=== PATIENT | female | born 1970 | race African-American/Black ===

== ENCOUNTER 2017-11-01 08:53 | Day surgery (SDC) | payer OTHER, SELFPAY ==
[2017-11-01] MEDS ORDERED: Mexiletine HCl 150 MG CAP PO SCH (09:30)
[2017-11-01 09:40] VITALS: BMI 31.6
[2017-11-01 12:17] VITALS: BP 118/58; TEMP 98
== END 2017-11-01 15:42 | disposition home or self-care (01) ==
LOC: SDC/OP 08:53 → UNDOADMOB 08:53 → 2SW 08:53 → EDSTATUS 14:28 → UNDODISOB 15:42 → SDC/OP 15:42
PROVIDERS: ATTEND Psychiatry & Neurology Neurology
DX: M79.2 Neuralgia and neuritis, unspecified (principal); I10 Essential (primary) hypertension; E78.5 Hyperlipidemia, unspecified; G47.33 Obstructive sleep apnea (adult) (pediatric); G47.00 Insomnia, unspecified; E66.9 Obesity, unspecified; Z68.31 Body mass index [BMI] 31.0-31.9, adult; Z79.84 Long term (current) use of oral hypoglycemic drugs; Z79.899 Other long term (current) drug therapy; Z88.1 Allergy status to other antibiotic agents

== ENCOUNTER 2017-11-11 18:39 | Observation (INO) | payer SELFPAY ==
[2017-11-11 19:08] LABS: #Lymphocytes 1.3 thou/uL (1.20-3.40); #Monocytes 0.6 thou/uL (0.11-0.59); #Neutrophils 8.5 thou/uL (1.40-6.50); %Basophils 0.5 % (0.0-1.0); %Eosinophils 0.5 % (0.0-10.0); %Monocytes 5.5 % (0.0-10.0); %Neutrophils 81.7 % (42.0-75.0); Hemoglobin 12.5 g/dL (12.0-16.0); Mean Corpuscular HGB CONC 32.7 g/dL (32.0-36.0); Mean Corpuscular Hemoglobin 28.3 pg (27.0-31.0); Mean Corpuscular Volume 86.5 fl (81.0-99.0); Mean Platelet Volume 7.3 fL (7.4-10.4); Platelet Count 268 thou/uL (130-400); RBC Distribution Width 12.2 % (11.5-14.5); White Blood Cell (WBC) Count 10.4 thou/uL (4.8-10.8)
[2017-11-11 19:33] LABS: ALT (SGPT) 32 U/L (8-55); AST (SGOT) 18 U/L (5-34); Albumin 4.1 g/dL (3.5-5.0); Alkaline Phosphatase 66 U/L (40-150); Anion Gap 11 mmol/L (10-20); BUN (Urea Nitrogen) 15 mg/dL (7.0-18.7); Bilirubin, Total 0.3 mg/dL (0.2-1.2); CK (CPK) 61 U/L (29-168); CKMB 0.5 ng/mL (0-6.6); Calc. Creatinine Clearance 0 mL/min (70-130); Calcium 9.2 mg/dL (7.8-10.44); Carbon Dioxide 26 mmol/L (22-29); Chloride 106 mmol/L (98-107); Estimated GFR-MDRD 89; Globulin 3.1 g/dL (2.4-3.5); Glucose 191 mg/dL (70-105); Potassium 4.4 mmol/L (3.5-5.1); Protein, Total 7.2 g/dL (6.0-8.3); Sodium 139 mmol/L (136-145); Troponin I Less than 0.010 ng/mL (< 0.028)
--- NOTE | 2017-11-11 20:55 | RAD ---
CHEST ONE VIEW: HISTORY: Cough (R05). COMPARISON: None available. FINDINGS: A dorsal column stimulator is present. The lungs are clear. No pneumothorax or effusion. Cervical hardware is present. IMPRESSION: No acute intrathoracic abnormality. POS: [facility]
[2017-11-11] MEDS ORDERED: Ketorolac Tromethamine 30 MG/ML VIAL ONE (21:05)
[2017-11-11 23:21] LABS: Troponin I Less than 0.010 ng/mL (< 0.028)
[2017-11-12 02:11] LABS: Troponin I Less than 0.010 ng/mL (< 0.028)
[2017-11-12] MEDS ORDERED: Zolpidem Tartrate 5 MG TAB PO PRN (09:23)
[2017-11-12] MEDS ORDERED: Ondansetron HCl/PF 4 MG/2 ML Vial IVP PRN (09:23)
[2017-11-12] MEDS ORDERED: Dextrose 5% in Water 1,000 ML IV PRN (09:42)
[2017-11-12] MEDS ORDERED: HumaLOG 300 UNITS/3 ML VIAL SC PRN (09:42)
[2017-11-12] MEDS ORDERED: Dextrose 50% Abboject 50 ML SYRINGE SLOW IVP PRN (09:42)
--- NOTE | 2017-11-12 09:46 | PDOC.EVN ---
Event Note - Event Note Event Note: H&P DICTATED [id number]
--- NOTE | 2017-11-12 09:49 | PDOC.EVN ---
Event Note - Event Note Event Note: DC SUMMARY: [id number]
[2017-11-12] MEDS ORDERED: SUMAtriptan Succinate 50 MG TAB PO PRN (09:57)
--- NOTE | 2017-11-12 11:19 | HP ---
DATE OF ADMISSION: 11/12/2017 CHIEF COMPLAINT: Chest pain. HISTORY OF PRESENT ILLNESS: This is a 47-year-old female who says that approximately 2 weeks ago, sangita paredes was started on 2 medications from her solutions architect consultant and has been noted to have some chest pain which is band and pressure-like in nature, radiating across her chest as well as to her right arm to the r ight elbow. The patient states that the pain is 10/10 when it does occur, currently is a 5/10, state s that pain occurs with exertion, improves with rest. Denies any other associated symptoms or compla ints. States that the pain prior to 2 weeks ago had never occurred. The patient currently denies an y other nausea, vomiting, diarrhea, constipation, fevers, chills, shortness of breath. No alleviatin g or aggravating factors noted. No other associated symptoms noted. The patient was seen and examin ed. Family at bedside in the ER. All questions answered. ALLERGIES: CEPHALOSPORINS. PAST MEDICAL HISTORY: Hypertension, obesity, hyperlipidemia, cervical disk disease as well as obstru ctive sleep apnea and diabetes mellitus type 2. FAMILY HISTORY: Positive for diabetes mellitus type 2, hypertension, stroke, and cardiac disease in her mom and dad. SOCIAL HISTORY: Denies any drinking, smoking or illicit drug use. HOME MEDICATIONS: Please see MAR. REVIEW OF SYSTEMS: All systems reviewed. Pertinent positives in the HPI, otherwise negative. PHYSICAL EXAMINATION: VITAL SIGNS: Blood pressure is 130/80, respiratory rate of 18, pulse of 88, temperature of 98. GENERAL: The patient in no acute distress, lying in bed comfortably. HEENT: Pupils equal, round, react to light and accommodation. Extraocular muscles intact. Oral cav ity moist and pink. NECK: Nontender thyroid noted. CARDIOVASCULAR: Regular rate and rhythm. S1 and S2. No murmurs, rubs or gallops appreciated. PULMONARY: Clear to auscultation bilaterally, aerating well. No respiratory distress. No rales, rh onchi, wheezing appreciated. ABDOMEN: Positive bowel sounds, soft, nontender, no rebound or guarding noted. EXTREMITIES: 2+ peripheral pulses bilaterally in all 4 extremities. No edema noted in all 4 extremi ties. NEUROLOGIC: Cranial nerves II-XII intact. No loss of motor or sensory function. LABORATORY DATA: CBC within normal limits. D-dimer level less than 0.27. Basic metabolic panel wit hin normal limits. Troponins negative x3 over a period of 18 hours. ASSESSMENT AND PLAN: 1. Chest pain. 2. Hyperlipidemia. 3. Hypertension. 4. Diabetes mellitus type 2. 5. Obesity. 6. Obstructive sleep apnea. PLAN: Admit to telemetry observation. Troponins are negative x3. We will obtain a cardiac stress t est, chemical. Consult Dr. Conde. Discharge planning for today if stress test negative and if okay w ith Dr. Conde. CODE STATUS: The patient wishes to remain a full code. GI and DVT prophylaxis with SCDs and Pepcid. Case and plan discussed with the patient and family at length. They understand and agree with this p radha.
[2017-11-12] MEDS ORDERED: Gabapentin 400 MG CAP PO SCH (13:00)
--- NOTE | 2017-11-12 13:21 | NM ---
NUCLEAR MEDICINE CARDIAC STRESS WITH EJECTION FRACTION AND WALL MOTION: Date: 11/12/17 HISTORY: Chest pain. COMPARISON: 08/14/17. TECHNIQUE: The patient was administered 28 mCi of technetium-99m sestamibi. Only stress imaging was performed. FINDINGS: Homogeneous distribution of the radiotracer on the attenuation corrected images. End-diastolic volume is 58 mL. End-systolic volume is 15 mL. CARDIAC GATING: Normal motion and thickening. Ejection fraction is 74%. IMPRESSION: 1. Ejection fraction is 74%. 2. Homogeneous distribution of radiotracer in left ventricle. POS: [facility]
[2017-11-12] MEDS ORDERED: ADENOSINE 60 MG/20 ML VIAL ONE (13:25)
--- NOTE | 2017-11-12 14:24 | DIS ---
DATE OF ADMISSION: 11/12/2017 DATE OF DISCHARGE: 11/12/2017 ADMITTING DIAGNOSES: 1. Chest pain. 2. Hyperlipidemia. 3. Hypertension, 4. Obesity. 5. Obstructive sleep apnea. 6. Diabetes mellitus type 2. DISCHARGE DIAGNOSES: 1. Chest pain, noncardiac in nature. 2. Hypertension. 3. Hyperlipidemia. 4. Obesity. 5. Diabetes mellitus type 2. HOSPITAL COURSE: This is a 47-year-old female who stated that she was having band-like chest pain ac ross her with chest for the past 2 weeks, 10/10 at worst 5/10 at best, radiating to her right shoulde r not going past her right elbow. The patient apparently had a recent medication change from her car diologist approximately 2-4 weeks ago and noted that the pain started approximately 2 weeks ago. Shannon or to that, she has never had any chest pain. The patient was admitted to Internal Medicine and foll owed by Cardiology. Also had a stress test done. The patient had cardiac enzymes done negative x3. CBC was normal. BMP was normal. D-dimer was negative. The patient had a chest x-ray performed dur ing time of admission as well and was found to have no acute intrathoracic abnormality noted. The pa tient upon time of discharge denied any nausea, vomiting, diarrhea, constipation, chest pains or shor tness of breath, was stable and back to her baseline. The patient wants to be discharged home and fo llow up with her gse mechanic and PCP within 1 week for further management and care. DISPOSITION: Home. MEDICATIONS: Resume home medications. ACTIVITY: As tolerated with assistance as appropriate. DIET: Low fat, low calorie, high fiber diet. CONDITION: Stable. PROGNOSIS: Good. The case and plan discussed with the patient and family at length. They understand and agree with th is plan.
[2017-11-12] MEDS ORDERED: busPIRone HCl 10 MG TAB PO SCH (15:00)
[2017-11-12] MEDS ORDERED: Famotidine 20 MG TAB PO SCH (21:00)
[2017-11-12] MEDS ORDERED: Simvastatin 5 MG TAB PO SCH (21:00)
[2017-11-12] MEDS ORDERED: DULoxetine 60 MG CAP PO SCH (21:00)
[2017-11-12] MEDS ORDERED: Carvedilol 3.125 MG TAB PO SCH (21:00)
[2017-11-12] MEDS ORDERED: Amlodipine 10 MG TAB PO SCH (21:00)
[2017-11-13] MEDS ORDERED: predniSONE 5 MG TAB PO SCH (08:00)
[2017-11-13] MEDS ORDERED: Lisinopril 10 MG TAB PO SCH (09:00)
== END 2017-11-12 13:38 | disposition home or self-care (01) ==
LOC: ERS 18:39 → ERHOLD 22:22
PROVIDERS: ADMIT Internal Medicine; ATTEND Internal Medicine
DX: R07.89 Other chest pain (principal); I10 Essential (primary) hypertension; E78.5 Hyperlipidemia, unspecified; E66.9 Obesity, unspecified; G47.33 Obstructive sleep apnea (adult) (pediatric); E11.9 Type 2 diabetes mellitus without complications; Z88.1 Allergy status to other antibiotic agents; Z79.899 Other long term (current) drug therapy
CPT/HCPCS: 36415; 71045; 78452; 80053; 82553; 84484; 85025; 85379; 93005; 93017; 96374; A9500; G0378; J0153; J1885

== ENCOUNTER 2018-07-10 19:42 | Emergency (ER) | payer MEDICARE, OTHER ==
[2018-07-10 20:39] LABS: #Basophils 0.1 thou/uL (0.0-0.2); #Lymphocytes 1.4 thou/uL (1.20-3.40); #Monocytes 0.4 thou/uL (0.11-0.59); #Neutrophils 6.6 thou/uL (1.40-6.50); %Basophils 0.9 % (0.0-1.0); %Eosinophils 0.4 % (0.0-10.0); %Lymphocytes 16.6 % (21.0-51.0); %Monocytes 4.7 % (0.0-10.0); %Neutrophils 77.3 % (42.0-75.0); Hemoglobin 13.1 g/dL (12.0-16.0); Mean Corpuscular HGB CONC 32.8 g/dL (32.0-36.0); Mean Corpuscular Hemoglobin 28.1 pg (27.0-31.0); Mean Corpuscular Volume 85.5 fL (78.0-98.0); Mean Platelet Volume 8.2 fL (7.4-10.4); Platelet Count 262 thou/uL (130-400); RBC Distribution Width 11.9 % (11.5-14.5); Red Blood Cell (RBC) Count 4.66 mill/uL (4.20-5.40); White Blood Cell (WBC) Count 8.5 thou/uL (4.8-10.8)
--- NOTE | 2018-07-10 20:44 | RAD ---
PORTABLE CHEST: 07/10/18 PROVIDED CLINICAL HISTORY: Chest pain. FINDINGS: Comparison 02/08/18. Cardiac and mediastinal silhouette is within normal limits. No focal consolidation, pleural fluid or pneumothorax apparent. IMPRESSION: No evidence for an acute cardiopulmonary process. POS: [facility]
[2018-07-10 20:59] LABS: ALT (SGPT) 33 U/L (8-55); AST (SGOT) 17 U/L (5-34); Albumin 4.6 g/dL (3.5-5.0); Alkaline Phosphatase 78 U/L (40-150); Anion Gap 17 mmol/L (10-20); BUN (Urea Nitrogen) 17 mg/dL (7.0-18.7); Bilirubin, Total 0.2 mg/dL (0.2-1.2); Calc. Creatinine Clearance 0 mL/min (70-130); Calcium 10.2 mg/dL (7.8-10.44); Carbon Dioxide 23 mmol/L (22-29); Chloride 103 mmol/L (98-107); Estimated GFR-MDRD 69; Globulin 3.5 g/dL (2.4-3.5); Glucose 250 mg/dL (70-105); Lipase 32 U/L (8-78); Potassium 4.1 mmol/L (3.5-5.1); Protein, Total 8.1 g/dL (6.0-8.3); Sodium 139 mmol/L (136-145)
[2018-07-10 21:17] LABS: BHCG - Serum Negative (NEGATIVE); Pregs Control Background? CLEAR/WHITE (CLR/WHITE); Pregs Control Bar Appear? YES (CONTROL BAR)
[2018-07-10] MEDS ORDERED: Morphine 4 MG/ML VIAL ONE (22:58)
[2018-07-10 23:51] LABS: Troponin I Less than 0.010 ng/mL (< 0.028)
== END 2018-07-11 00:13 | disposition home or self-care (01) ==
LOC: ERS 19:42
DX: R07.9 Chest pain, unspecified (principal); I10 Essential (primary) hypertension; E78.00 Pure hypercholesterolemia, unspecified; E11.9 Type 2 diabetes mellitus without complications; Z79.899 Other long term (current) drug therapy; Z79.84 Long term (current) use of oral hypoglycemic drugs
CPT/HCPCS: 36415; 71045; 80053; 83690; 84443; 84484; 84703; 85025; 85379; 93005; 96361; 96374; J2270

== ENCOUNTER 2018-09-01 14:12 | Emergency (ER) | payer MEDICARE | END 2018-09-01 15:46 | disposition home or self-care (01) | LOC: ERS 14:12 | DX: L76.22 Postprocedural hemorrhage of skin and subcutaneous tissue following other procedure (principal); E78.5 Hyperlipidemia, unspecified; E11.9 Type 2 diabetes mellitus without complications; I10 Essential (primary) hypertension; Z79.84 Long term (current) use of oral hypoglycemic drugs; Z79.899 Other long term (current) drug therapy; Z79.891 Long term (current) use of opiate analgesic | CPT/HCPCS: 99283 ==

== ENCOUNTER 2018-12-12 14:12 | Outpatient (CLI) | payer MEDICARE ==
--- NOTE | 2018-12-12 15:04 | CT ---
CT OF THE LUMBAR SPINE: DATE: 12/12/2018. COMPARISON: 03/10/2013. HISTORY: Lumbar radiculopathy, pain down both legs. TECHNIQUE: Axial CT imaging at 3 mm intervals through the lumbar spine without contrast. Coronal and sagittal re formatted imaging obtained. FINDINGS: Evaluation for central canal and/or neural foraminal stenosis is limited on routine CT examination. Incompletely imaged dorsal column stimulating device present. Imaged retroperitoneal structures appea r grossly unremarkable. Bilateral pedicle screws are present at the L5 and S1 levels with vertically oriented interlocking rods. There is an intervertebral disc device at the L5-S1 level. No acute osseous abnormality. No anterolisthesis or retrolisthesis. T12-L1: No osseous cause of significant central canal or neural foraminal stenosis. L1-2: No osseous cause of significant central canal or neural foraminal stenosis. L2-3: No osseous cause of significant central canal or neural foraminal stenosis. L3-4: No osseous cause of significant central canal or neural foraminal stenosis. L4-5: No osseous cause of significant central canal or neural foraminal stenosis. L5-S1: Hemilaminectomy and facetectomy noted on the left. No osseous cause of significant central can al or neural foraminal stenosis. There is a pars defect on the right at L5 which appears to have developed osseous bridging when compared to the prior CT exam. No worrisome lytic or blastic bone les ion. IMPRESSION: Postoperative changes within the lumbar spine as detailed above. There is no osseous cause of signifi cant central canal or neural foraminal stenosis. If further imaging is clinically warranted, CT myelogram may be beneficial. Transcribed Date/Time: 12/12/2018 3:42 PM
--- NOTE | 2018-12-12 15:13 | CT ---
CERVICAL SPINE CT WITHOUT CONTRAST: DATE: 12/12/2018. COMPARISON: 08/20/2016. HISTORY: Multiple prior cervical spine surgeries, neck pain. TECHNIQUE: Axial CT imaging at 2 mm intervals through cervical spine without contrast. Coronal and sagittal refo rmatted imaging obtained. FINDINGS: Evaluation for central canal and/or neural foraminal stenosis is limited on CT. In this case evaluati on is quite limited from the C3-C6 levels secondary to extensive streak artifact associated with anterior and posterior metallic fusion hardware. Postoperative hardware includes anterior discectomy and fusion hardware at the C3-4/C4-5 level. There is an additional anterior discectomy and fusion hardware component at C6-7. The screws inserted anteriorly at the C7 level appear fractured bilaterally and the head of both of these screws is not f ully flush with the associated plate. The anterior fusion hardware at C3-4 and C4-5 appears stable compared to the prior exam. Posterior fusion hardware including bilateral pedicle screws at C3, C4, C 5, and C6 are noted with vertically oriented interlocking rods. Of note, there is a lucency suggesting loosening of the bilateral pedicle screws at C6, stable when compared to the prior examina tion. The posterior fusion hardware is stable when compared to the prior CT examination. The visualized lung apices are grossly unremarkable. Craniocervical junction, atlantoaxial interspace, and cervicothoracic junction demonstrate no acute f indings. There is no anterolisthesis or retrolisthesis evident within the cervical spine. C2-3: No osseous cause of significant central canal or neural foraminal stenosis. C3-4: Posterior osteophyte in left paracentral region, stable. No osseous cause of significant neural foraminal stenosis. Bilateral laminectomy. C4-5: No osseous cause of significant central canal or neural foraminal stenosis. Bilateral laminect gary change noted. C5-6: No osseous cause of significant central canal or neural foraminal stenosis. Bilateral laminecto my change noted. C6-7: No osseous cause of significant central canal or neural foraminal stenosis. There is posterior osteophyte in the left foraminal/left paracentral region. C7-T1: No osseous cause of significant central canal or neural foraminal stenosis. Occipital condyles, dens, and C1-2 articulation appear grossly unremarkable. No acute fracture or eugene dence of dislocation is seen within the cervical spine. The anteriorly placed screw on the right at C5 demonstrates stable fracture. IMPRESSION: Postoperative and degenerative change within the cervical spine as detailed above. Anterior fusion sc rews at C7 demonstrate fracture as does the right screw placed anteriorly at C5. The pedicle screws present at C6 demonstrate stable loosening bilaterally. If there is clinical concern for underlying c entral canal and/or neural foraminal stenosis, CT myelogram may be beneficial. Transcribed Date/Time: 12/12/2018 3:51 PM
== END 2018-12-12 14:13 | disposition home or self-care (01) ==
LOC: BICCT 14:12
PROVIDERS: ATTEND Pain Medicine Pain Medicine
DX: M54.2 Cervicalgia (principal); M54.17 Radiculopathy, lumbosacral region; M47.812 Spondylosis without myelopathy or radiculopathy, cervical region; Z98.1 Arthrodesis status; Z98.890 Other specified postprocedural states
CPT/HCPCS: 72125; 72131

== ENCOUNTER 2018-12-16 16:00 | Observation (INO) | payer MEDICARE ==
--- NOTE | 2018-12-16 16:59 | RAD ---
PORTABLE CHEST ONE VIEW: 12/16/18 at 4:06 p.m. HISTORY: Chest pain. FINDINGS: Comparison made with the exam of 07/10/18. The heat size is normal. The lungs are expanded without focal areas of consolidation, pneumothoraces, or pleural effusions. Intraspinal leads and postop changes and metallic hardware in the lower cervi lamar spine is again noted. IMPRESSION: No radiographic evidence of acute cardiopulmonary process. POS: [facility]
[2018-12-16 17:07] LABS: #Basophils 0.1 thou/uL (0.0-0.2); #Eosinphils 0.1 thou/uL (0.0-0.7); #Lymphocytes 2.4 thou/uL (1.20-3.40); #Monocytes 0.6 thou/uL (0.11-0.59); #Neutrophils 4.3 thou/uL (1.40-6.50); %Eosinophils 1.6 % (0.0-10.0); %Lymphocytes 31.9 % (21.0-51.0); %Monocytes 8.5 % (0.0-10.0); Hemoglobin 12.1 g/dL (12.0-16.0); Mean Corpuscular HGB CONC 32.3 g/dL (32.0-36.0); Mean Corpuscular Hemoglobin 27.9 pg (27.0-31.0); Mean Corpuscular Volume 86.3 fL (78.0-98.0); Mean Platelet Volume 8.2 fL (7.4-10.4); Platelet Count 245 thou/uL (130-400); RBC Distribution Width 12.1 % (11.5-14.5); Red Blood Cell (RBC) Count 4.36 mill/uL (4.20-5.40); White Blood Cell (WBC) Count 7.5 thou/uL (4.8-10.8)
[2018-12-16] MEDS ORDERED: Aspirin Chewable 81 MG TAB ONE (17:39)
[2018-12-16 17:45] LABS: ALT (SGPT) 27 U/L (8-55); AST (SGOT) 12 U/L (5-34); Albumin 4.1 g/dL (3.5-5.0); Alkaline Phosphatase 74 U/L (40-150); Anion Gap 13 mmol/L (10-20); BUN (Urea Nitrogen) 9 mg/dL (7.0-18.7); Bilirubin, Total 0.3 mg/dL (0.2-1.2); Calc. Creatinine Clearance 0 mL/min (70-130); Calcium 9.6 mg/dL (7.8-10.44); Carbon Dioxide 25 mmol/L (22-29); Chloride 104 mmol/L (98-107); Estimated GFR-MDRD 82; Globulin 2.9 g/dL (2.4-3.5); Glucose 323 mg/dL (70-105); Potassium 3.4 mmol/L (3.5-5.1); Sodium 139 mmol/L (136-145)
[2018-12-16 20:38] LABS: Troponin I Less than 0.010 ng/mL (< 0.028)
[2018-12-16] MEDS ORDERED: Acetaminophen 650 MG Suppository PR PRN (21:01)
[2018-12-16] MEDS ORDERED: Acetaminophen 325 MG TAB PO PRN (21:01)
[2018-12-16] MEDS ORDERED: Ondansetron ODT 4 MG TAB PO PRN (21:01)
[2018-12-16] MEDS ORDERED: Nitroglycerin 0.4 MG TAB (25 Tab Bottle) PO PRN (21:01)
[2018-12-16] MEDS ORDERED: Ondansetron PF 4 MG/2 ML Vial IVP PRN (21:01)
[2018-12-16] MEDS ORDERED: Dextrose 50% Abboject 50 ML SYRINGE SLOW IVP PRN (21:04)
[2018-12-16] MEDS ORDERED: HumaLOG 300 UNITS/3 ML VIAL SC PRN (21:04)
[2018-12-16] MEDS ORDERED: Dextrose 5% in Water 1,000 ML IV PRN (21:04)
[2018-12-16 21:41] VITALS: BMI 31.6
[2018-12-16] MEDS ORDERED: Gabapentin 400 MG CAP PO SCH (22:30)
[2018-12-16] MEDS ORDERED: Simvastatin 5 MG TAB PO SCH (22:30)
[2018-12-16] MEDS ORDERED: Nortriptyline HCl 25 MG CAP PO SCH (22:30)
[2018-12-16] MEDS ORDERED: Zolpidem Tartrate 5 MG TAB PO SCH (22:30)
[2018-12-16] MEDS ORDERED: busPIRone HCl 10 MG TAB PO SCH (22:30)
[2018-12-16] MEDS ORDERED: DICLOFENAC SODIUM 25 MG PO SCH (22:45)
[2018-12-16 23:13] LABS: Troponin I Less than 0.010 ng/mL (< 0.028)
--- NOTE | 2018-12-17 01:13 | HP ---
PRIMARY CARE DOCTOR: Dr. David Santiago. CODE STATUS: Full code. TIME OF EVALUATION: 8:20 pm. CHIEF COMPLAINT: Chest pain. HISTORY OF PRESENT ILLNESS: This is a 48-year-old female patient with past medical history of diabetes, hyperlipidemia, hypertension, came to the hospital after having chest pain that was in the left lower ribcage area. The symptoms were severe when present. Symptoms have been on and off with no clear triggers, no alleviating factors. The patient reported that may be associated to being off mexiletine for a week. She reported that her primary doctor has not filled in the medications. The patient also follows with Dr. Conde and she has stated Dr. Conde going to place the patient in observation, trend troponins. Consult Dr. Conde in case the patient is needing cardiac cath recommendation. REVIEW OF SYSTEMS: CONSTITUTIONAL: No fever, chills, or generalized weakness. RESPIRATORY: No cough, sputum production, or shortness of breath. CARDIOVASCULAR: The patient has chest pain. No palpitation. GASTROINTESTINAL: No nausea, vomiting, diarrhea, or abdominal pain. SYSTEMS DEVELOPMENT MANAGER: No dizziness, headache, or feeling lightheaded. GENITOURINARY: No burning on urination. EXTREMITIES: No leg swelling. All other systems were reviewed and negative except for the findings mentioned above. PAST MEDICAL HISTORY: Diabetes, hyperlipidemia, high cholesterol, hypertension. PAST SURGICAL HISTORY: The patient has surgical history of spinal surgery, lumbar surgery, laminectomy, tonsillectomy, tubal ligation. PSYCHIATRIC HISTORY: No previous psych history. SOCIAL HISTORY: The patient denies alcohol use. No drug use. No smoking history. FAMILY HISTORY: The patient has history of hypertension. Father with a stroke. Mother with cardiac problems, congestive heart failure, and diabetes. KNOWN ALLERGIES: Cefazolin, penicillin and Rocephin. REPORTED MEDICATIONS: 1. Zolpidem. 2. Tizanidine. 3. Duloxetine. 4. Diclofenac. 5. Gabapentin. 6. Tylenol codeine No.4. 7. Pravastatin. 8. Amlodipine. 9. Metformin. 10. Nortriptyline. 11. Hydrocodone acetaminophen. 12. Prednisone. 13. Buspirone. 14. Lisinopril. 15. Glipizide. 16. Carvedilol. 17. Mexiletine. PHYSICAL EXAMINATION: VITAL SIGNS: On presentation, blood pressure 144/85 with heart rate 103, respiratory rate was 18, temperature 99.2. Pain is 9/10. Oxygen saturation 97% on room air. GENERAL: The patient is alert, oriented, not in acute distress. HEENT: Eyes, normal conjunctivae. Moist oral mucosa. Anicteric. No JVD. RESPIRATORY: Bilateral air entry. No rales. No wheezes. Symmetric expansion. CARDIOVASCULAR: Normal rate. Regular rhythm. No murmurs. No gallop. No edema. ABDOMEN: Soft. Normal bowel sounds. MUSCULOSKELETAL: Baseline range of motion and strength. SKIN: Warm, intact. No pallor. No rash. No redness. Capillary refill seems to be intact. NEURO: No evidence of any new focal weakness. Cranial nerves seems to be intact. PSYCH: The patient is in good mood. No anxiety. Optimal judgment. DIAGNOSTIC STUDIES: EKG was reviewed. The patient has normal sinus rhythm with a rate of 96, MT 130, QRS 74, QT corrected 442. Chest x-ray was reviewed. The patient has no radiographic evidence of acute cardiopulmonary process. LABORATORY DATA: Reviewed. The patient has a white count 7.5, hemoglobin 12.1, MCV 86.3, platelet count 245. Chemistry; sodium 139, potassium 3.4, chloride 104, carbon dioxide 25, anion gap 13, BUN 9, creatinine 0.89, GFR 82, glucose 323, calcium 9.6, total bilirubin 0.3. LFTs were negative. Troponin was negative x2. Serum total protein 7.0, albumin 4.1, globulin 2.9, albumin globulin ratio is 1.4. ASSESSMENT AND PLAN: The patient will be placed in the hospital with following medical problems: 1. Chest pain, rule out acute coronary syndrome. The patient had seen Dr. Conde yesterday. Dr. Conde has offered her to have a cardiac cath done since previous studies have been nonconclusive as per patient's report. We will consult Dr. Conde and we will follow recommendations in case the patient needs to go for cardiac cath at this point. 2. Uncontrolled hypertension. The patient has systolic blood pressure 142. Reconcile home medications. Adjust treatment as needed. 3. Uncontrolled diabetes with sugar 323. We will place the patient on a sliding scale for optimal control. 4. Hypokalemia. Potassium 3.4. Replace electrolytes as needed. 5. Hyperlipidemia. Low-cholesterol diet is advised, reconcile home medications. 6. Deep venous thrombosis prophylaxis. Job ID: [id number]
[2018-12-17 05:48] LABS: #Basophils 0.1 thou/uL (0.0-0.2); #Eosinphils 0.1 thou/uL (0.0-0.7); #Lymphocytes 2.7 thou/uL (1.20-3.40); #Monocytes 0.8 thou/uL (0.11-0.59); #Neutrophils 5.7 thou/uL (1.40-6.50); %Basophils 0.8 % (0.0-1.0); %Eosinophils 0.8 % (0.0-10.0); %Lymphocytes 29.1 % (21.0-51.0); %Monocytes 8.8 % (0.0-10.0); %Neutrophils 60.4 % (42.0-75.0); Hemoglobin 11.6 g/dL (12.0-16.0); Mean Corpuscular HGB CONC 32.5 g/dL (32.0-36.0); Mean Corpuscular Volume 86.1 fL (78.0-98.0); Mean Platelet Volume 7.9 fL (7.4-10.4); Platelet Count 231 thou/uL (130-400); Red Blood Cell (RBC) Count 4.14 mill/uL (4.20-5.40); White Blood Cell (WBC) Count 9.4 thou/uL (4.8-10.8)
[2018-12-17 06:12] LABS: Anion Gap 11 mmol/L (10-20); BUN (Urea Nitrogen) 12 mg/dL (7.0-18.7); Calc. Creatinine Clearance 119 mL/min (70-130); Calcium 9.3 mg/dL (7.8-10.44); Carbon Dioxide 28 mmol/L (22-29); Chloride 105 mmol/L (98-107); Estimated GFR-MDRD Greater than 90; Glucose 142 mg/dL (70-105); Potassium 3.7 mmol/L (3.5-5.1); Sodium 140 mmol/L (136-145)
[2018-12-17] MEDS ORDERED: Carvedilol 6.25 MG TAB PO SCH (08:00)
[2018-12-17] MEDS ORDERED: predniSONE 5 MG TAB PO SCH (08:00)
[2018-12-17] MEDS ORDERED: DULoxetine 60 MG CAP PO SCH (09:00)
[2018-12-17] MEDS ORDERED: Lisinopril 10 MG TAB PO SCH (09:00)
[2018-12-17] MEDS ORDERED: Aspirin 325 mg Enteric Coated Tablet PO SCH (09:00)
[2018-12-17] MEDS ORDERED: Enoxaparin Sodium 40 MG/0.4 ML SYRINGE SC SCH (09:00)
[2018-12-17] MEDS ORDERED: Amlodipine 10 MG TAB PO SCH (09:00)
--- NOTE | 2018-12-17 10:53 | CON ---
DATE OF CONSULTATION: 12/17/2018 INDICATION FOR CONSULTATION: A 48-year-old female, who complains of chest pain. This very unfortunate 48-year-old female I have followed for some time now. She has a history of hypertension, hyperlipidemia, diabetes, and multiple problems with pain. She has chronic pain syndrome. She has been seen by Neurology. She was started on mexiletine. She was recently seen in my office and was requesting for the refills. Since I did not prescribe this medication and this was given for a neurologic problem, I did not refill the medication. I would suggest that she follow with her neurologist. She now has presented again to the hospital complaining of more left-sided pain. According to the breast area sometime, she describes it as being a sharp stabbing pain, sometimes a pressure pain, sometimes radiating across the chest. It does not associate with any particular activity. She can get it at rest. She can get with when she is walking or sometimes she can do the same activities and not get the pain. She has had some associated shortness of breath associated with this, but sometimes not. She is somewhat vague and discomfort. The pain usually lasts one or two minutes and then resolves on its own. Her EKG is unremarkable. Cardiac enzymes are unremarkable. She had a stress test within the year, which has also been unremarkable. She had a normal ejection fraction. Given her history and the evaluation, it does not appear to be cardiac in nature at this time. PAST MEDICAL HISTORY: Significant for hyperlipidemia, diabetes, hypertension, and hypercholesterolemia. She has had back surgeries, lumbar surgery, laminectomy, tonsillectomy, and tubal ligation and she has chronic pain syndrome. She has no alcohol or tobacco abuse. No illicit drug use. MEDICATIONS: Include zolpidem, tizanidine, duloxetine, diclofenac, and gabapentin. She has also taken Tylenol with codeine #4, pravastatin, amlodipine, metformin, nortriptyline, hydrocodone/acetaminophen, prednisone, buspirone, lisinopril, glipizide, carvedilol, and mexiletine and I believe this has been recently restarted. ALLERGIES: SHE IS ALLERGIC TO ROCEPHIN, PENICILLIN, AND CEFAZOLIN. REVIEW OF SYSTEMS: Her review of systems is unremarkable except what is noted in the history of present illness. PHYSICAL EXAMINATION: GENERAL: Reveals a middle-aged female, who is in no acute distress. She is alert. She is oriented. VITAL SIGNS: Her blood pressure is 135/75. She is afebrile. Heart rates in the 90s and shows a sinus rhythm, O2 saturation 95%. HEENT: Shows the head to be normocephalic and atraumatic. Carotid pulses are present. There were no bruits. Her chest was clear to auscultation without rales, rhonchi, or wheezing. CARDIOVASCULAR: Exam reveals a regular rate and rhythm. Normal S1 and S2. There is no S3 or S4. There were no significant murmurs, heaves, thrills, bruits, or rubs. ABDOMEN: Exam shows obesity with positive bowel sounds. No organomegaly or masses noted. Femoral pulses are present. EXTREMITIES: No clubbing, cyanosis, or edema. Pedal pulses are present. NEUROLOGIC: The patient at this time appears to be fully intact. I cannot elicit any gross focal motor deficits. SKIN: Warm and dry. LABORATORY DATA: Unremarkable. WBC of 9.4, hemoglobin 11.6, potassium is 3.7, blood sugar is 142, earlier it was 323. Cardiac enzymes, troponin I is less than 0.01. IMPRESSION: 1. Atypical chest pain, which most likely is musculoskeletal and neurologic in nature, does not appear to be cardiac. She has a normal EKG and negative cardiac enzymes. She did have a stress test in the past. We can always repeat the stress test. I do not think that a cardiac catheterization is indicated at this time. I suggest she undergo a repeat stress test prior to any further invasive procedures. Her echocardiogram also shows a normal ejection fraction and no other significant abnormalities were noted. This was performed also within the last year. Her ejection fraction by stress testing was 74% by echocardiogram. Her ejection fraction was 65% to 70% with no other significant abnormalities. 2. History of diabetes, this to be dealt by the primary care service. 3. History of chronic pain. She has been seen by the neurologist. They will continue to follow her as an outpatient. If her stress test shows any abnormality, we are more than happy for her to undergo a cardiac catheterization. For her other medical problems, she will be that she will be followed by the Hospitalist Service. Thank you. Job ID: [id number]
[2018-12-17 12:58] VITALS: BP 148/76; TEMP 98.1
[2018-12-17] MEDS: busPIRone HCl 10 MG TAB PO SCH ×2 (13:15)
[2018-12-17] MEDS: Gabapentin 400 MG CAP PO SCH ×2 (13:16→13:17)
--- NOTE | 2018-12-17 14:02 | NM ---
EXAM: Cardiac SPECT HISTORY: Chest pain, hypertension, diabetes, dyslipidemia. PROTOCOL: Stress only, single isotope TYPE OF STRESS: Pharmacologic stress with adenosine was monitored and interpreted by Last Cardenas nurse practitioner RADIOPHARMACEUTICAL: 30 mCi technetium 99m-sestamibi injected intravenously FINDINGS: Homogeneous tracer distribution is seen in the myocardial segments on the post stress images. Gated SPECT LVEF: 72% Wall motion exam: Normal IMPRESSION: Normal post stress myocardial perfusion scan.
[2018-12-17] MEDS ORDERED: ADENOSINE 60 MG/20 ML VIAL ONE (16:36)
[2018-12-17] MEDS ORDERED: Simvastatin 5 MG TAB PO SCH (21:00)
[2018-12-17] MEDS ORDERED: Nortriptyline HCl 25 MG CAP PO SCH (21:00)
[2018-12-17] MEDS ORDERED: DICLOFENAC SODIUM 25 MG PO SCH (21:00)
[2018-12-17] MEDS ORDERED: Zolpidem Tartrate 5 MG TAB PO SCH (21:00)
--- NOTE | 2018-12-18 10:51 | CON ---
DATE OF CONSULTATION: PRIMARY CARE DOCTOR: Dr. Dvaid Santiago. PRIMARY HEEL GOUGER: Dr. Yanci Conde. REASON FOR CARDIOLOGY CONSULTATION: Chest pain, had been offered cath. HISTORY OF PRESENT ILLNESS: Ms. Alex Bowman is a 48-year-old female with a significant history of diabetes type 2, hyperlipidemia, hypertension, history of TIA, neuropathy, and chronic back pain, which radiated to the right bilateral shoulder. The patient was in Dr. Conde' office on Saturday for questionable mexiletine, which was prescribed by the neurologist, and that she was requesting Dr. Conde to prescribe the medication for neuropathy and which also controlled her chest pain. At this moment, we are waiting for more information from Dr. Conde' office about the medication. Yesterday, she started having worsened sharp pain on the left chest and pressure to the right upper chest, which aggravated with palpation and movement, and she had another episode last night; however, the telemetry record did not show any abnormal EKG or ST-segment change or T-wave inversion. She also complained of the sweating, breakout, and spinning like dizziness during the episode last night and yesterday. She denies any other cardiac complaints during the episode. She has had echocardiogram that was done in January 2018 with EF of 65% to 70%, mild tricuspid regurgitation, trace mitral valve regurgitation, and moderate pulmonic valve regurgitation, and she had a stress test in October 2017 with no reversible ischemia with EF of 74%. She had a carotid Doppler done in January 2018 for rule out TIA, which showed no significant evidence. No significant carotid stenosis. PAST MEDICAL HISTORY: 1. Diabetes type 2. 2. Hyperlipidemia. 3. Hypertension. 4. History of TIA in January 2018. 5. Neuropathy. 6. Chronic back pain, which requires further treatment and surgery in the near future. She sees the doctor in [place]. PAST SURGICAL HISTORY: Multiple spinal surgeries, lumbar surgery, laminectomy, tonsillectomy, tubal ligation, right shoulder rotator cuff surgery. PSYCHIATRIC HISTORY: Depression and anxiety, which are well controlled with current medication. FAMILY HISTORY: They have significant cardiovascular disease in her maternal side. The patient's father had a medical history of hypertension and stroke x2. The patient's mother has a history of hypertension, diabetes, and CABG at the age around 50s before 60 years old, and she had an AICD placement. The patient's sister has a history of hypertension and diabetes. SOCIAL HISTORY: The patient is . She has 2 children, who are living well. She denies EtOH, tobacco, or illicit drug abuse. She has occasional soda, but she does not consume any caffeine regularly. She exercises three times a week with stretching and walking. ALLERGIES: SHE IS ALLERGIC TO CEFAZOLIN, PENICILLIN, AND ROCEPHIN. HOME MEDICATIONS: Please refer to the patient's medication list in the computer. REVIEW OF SYSTEMS: A 12-point review of systems negative unless otherwise mentioned in HPI. The patient has occasional headache, which will improve with nortriptyline. She has neuropathy in the bilateral lower extremities, and she also has chronic back pain, which radiates from back to bilateral lower extremities and to the bilateral shoulders. PHYSICAL EXAMINATION: VITAL SIGNS: Blood pressure 110/54, pulse in the 90's sinus rhythm, temperature 97.8, O2 saturation 97% with room air. GENERAL: The patient is alert and oriented x4, not in acute distress. HEENT: Normocephalic and atraumatic. Eyes; extraocular muscle movement intact. ENT and mouth, nose and oral mucosa moist without lesion. NECK: Supple. Normal range of motion. No JVD. RESPIRATORY: Clear to auscultate bilaterally. No rales, rhonchi, or wheezing noted. CARDIOVASCULAR: Regular rate and rhythm normal. Normal S1 and S2. There is no S3 or S4. No significant murmur, heave, or thrill noted. 2+ pulses in bilateral upper and lower extremities. No edema in the lower extremities. Carotid pulses are present without bruit or thrill. ABDOMEN: Soft, nontender. No mass to palpitate. Bowel sounds are present. MUSCULOSKELETAL: The patient is able to move all extremities. The patient denied claudication. SKIN: Warm, dry, intact. No rash, ischemia, or lesions noted. NEURO: The patient is alert and oriented x4. Nonfocal. PSYCHIATRIC: The patient's mood is appropriate. LABORATORY DATA: WBC 9.4, hemoglobin 11.6, hematocrit 35.7, and platelets 231. Sodium 140, potassium 3.7, BUN 12, creatinine 0.78, glucose 142, AST 12, ALT 27. Troponin negative x3. Chest x-ray shows no acute cardiopulmonary process. The patient's 12-lead EKG at the ER shows sinus rhythm with heart rate of [address]-segment change or T-wave inversion. ASSESSMENT AND PLAN: 1. Chest pain. The way she described her chest pain is musculoskeletal in nature because the heart symptoms become worse with palpitation, movements, and deep breath. Her cardiac enzymes are negative x3 and no EKG change. Her stress test in October 2017 showed normal; however, I like to discuss with Dr. Conde about the patient's case. 2. Hypertension. Her blood pressure has been stable at this moment with current medication. 3. Diabetes type 2, which is deferred to her primary care doctor. 4. Hyperlipidemia. She is on Zocor 10 mg once a day. 5. Depression and anxiety. The patient's mood is appropriate at this moment. Thank you very much for Cardiology Service to participate in the care of this patient. We will follow along the patient's care team and make further recommendations as appropriate. Job ID: [id number]
== END 2018-12-17 16:21 | disposition home or self-care (01) ==
LOC: ERS 16:00 → 2SW 20:44
PROVIDERS: ADMIT Internal Medicine; ATTEND Internal Medicine
DX: R07.9 Chest pain, unspecified (principal); I10 Essential (primary) hypertension; E78.5 Hyperlipidemia, unspecified; E11.9 Type 2 diabetes mellitus without complications; E78.00 Pure hypercholesterolemia, unspecified; E87.6 Hypokalemia; Z79.52 Long term (current) use of systemic steroids; Z79.84 Long term (current) use of oral hypoglycemic drugs; Z79.899 Other long term (current) drug therapy; Z88.0 Allergy status to penicillin; Z88.1 Allergy status to other antibiotic agents
CPT/HCPCS: 71045; 78452; 80048; 80053; 82962 ×2; 84484 ×2; 85025 ×2; 93005; 93017; 96372; 99285; A9500; G0378 ×2; 36415; 36416; J0153; J1650; J7512

== ENCOUNTER 2019-05-06 15:04 | Outpatient (CLI) | payer MEDICARE ==
--- NOTE | 2019-05-06 15:39 | MMO ---
Bilateral MAMMO Bilat Screen [facility]. CLINICAL HISTORY: Patient is 48 years old and is seen for screening. The patient has no family history of breast cancer. The patient has no personal history of cancer. VIEWS: The views performed were: bilateral craniocaudal with tomosynthesis and bilateral mediolateral oblique with tomosynthesis. FILMS COMPARED: The present examination has been compared to prior imaging studies performed at [facility] on 07/16/2013, 04/23/2015, 04/18/2016 and 07/29/2017. This study has been interpreted with the assistance of computer-aided detection. MAMMOGRAM FINDINGS: There are scattered fibroglandular densities. There are no suspicious masses, suspicious calcifications, or new areas of architectural distortion. IMPRESSION: THERE IS NO MAMMOGRAPHIC EVIDENCE OF MALIGNANCY. A ROUTINE FOLLOW-UP MAMMOGRAM IN 1 YEAR IS RECOMMENDED. THE RESULTS OF THIS EXAM WERE SENT TO THE PATIENT. ACR BI-RADS Category 1 - Negative MAMMOGRAPHY NOTE: 1. A negative mammogram report should not delay a biopsy if a dominant of clinically suspicious mass is present. 2. Approximately 10% to 15% of breast cancers are not detected by mammography. 3. Adenosis and dense breasts may obscure an underlying neoplasm. Reported by: BESSIE LO MD Electonically Signed: [id number]
== END 2019-05-06 15:05 | disposition home or self-care (01) ==
LOC: BICMAMMO 15:04
PROVIDERS: ATTEND Family Medicine
DX: Z12.31 Encounter for screening mammogram for malignant neoplasm of breast (principal)
CPT/HCPCS: 77063; 77067

== ENCOUNTER 2019-08-26 12:40 | Outpatient (CLI) | payer MEDICARE ==
--- NOTE | 2019-08-26 16:06 | RAD ---
TWO VIEWS CHEST: 08/26/19 COMPARISON: 09/04/03 HISTORY: Shortness of breath. FINDINGS: Two views of the chest show normal sized cardiomediastinal silhouette. There is no evidence of consol idation, mass, or pleural effusion. The bones are unremarkable. IMPRESSION: No evidence of acute cardiopulmonary disease. POS: TPC
== END 2019-08-26 12:41 | disposition home or self-care (01) ==
LOC: BICRAD 12:40
PROVIDERS: ATTEND Family Medicine
DX: R06.02 Shortness of breath (principal)
CPT/HCPCS: 71046

== ENCOUNTER 2019-12-26 14:46 | Emergency (ER) | payer MEDICARE ==
--- NOTE | 2019-12-26 15:41 | RAD ---
LEFT HAND: 12/26/19 Three views. HISTORY: Pain fifth digit. Carpals appear intact. The metacarpals and phalanges appear intact. Fifth digit appears unremarkable. IMPRESSION: No acute findings. POS: AGW
--- NOTE | 2019-12-26 15:42 | RAD ---
LEFT WRIST: 12/26/19 Three views. HISTORY: Wrist pain. Carpals appear normally aligned and intact. Distal radius and ulna appear intact. No fracture identif ied. IMPRESSION: No acute abnormality. POS: AGW
== END 2019-12-26 15:54 | disposition home or self-care (01) ==
LOC: ERS 14:46
DX: S63.501A Unspecified sprain of right wrist, initial encounter (principal); I11.0 Hypertensive heart disease with heart failure; E11.40 Type 2 diabetes mellitus with diabetic neuropathy, unspecified; I50.9 Heart failure, unspecified; E78.5 Hyperlipidemia, unspecified; E78.00 Pure hypercholesterolemia, unspecified; M19.90 Unspecified osteoarthritis, unspecified site; G47.00 Insomnia, unspecified; F41.9 Anxiety disorder, unspecified; F32.9 Major depressive disorder, single episode, unspecified; F43.10 Post-traumatic stress disorder, unspecified; Z79.84 Long term (current) use of oral hypoglycemic drugs; Z79.899 Other long term (current) drug therapy

== ENCOUNTER 2020-01-01 13:24 | Emergency (ER) | payer MEDICARE, OTHER ==
[2020-01-02 13:16] LABS: SARS-CoV-2 MS2 Positive; SARS-CoV-2 N Gene Negative; SARS-CoV-2 S Gene Negative; SARS-CoV-2 orf1ab Negative
== END 2020-01-01 15:09 | disposition home or self-care (01) ==
LOC: ERS 13:24
DX: R05 Cough (principal); M79.644 Pain in right finger(s); M25.531 Pain in right wrist; E78.5 Hyperlipidemia, unspecified; E78.00 Pure hypercholesterolemia, unspecified; M19.90 Unspecified osteoarthritis, unspecified site; G43.909 Migraine, unspecified, not intractable, without status migrainosus; E11.40 Type 2 diabetes mellitus with diabetic neuropathy, unspecified; I11.0 Hypertensive heart disease with heart failure; I50.9 Heart failure, unspecified; G47.00 Insomnia, unspecified; F41.9 Anxiety disorder, unspecified; F32.9 Major depressive disorder, single episode, unspecified; F43.10 Post-traumatic stress disorder, unspecified; Z20.828 Contact with and (suspected) exposure to other viral communicable diseases
CPT/HCPCS: 99283; U0003; 87635

== ENCOUNTER 2020-01-12 15:41 | Outpatient (CLI) | payer MEDICARE ==
--- NOTE | 2020-01-12 16:42 | MRI ---
MRI of right wrist performed without contrast enhancement: HISTORY: Right wrist pain. Pain goes from right pinky to extend into forearm with the wrist tender to touch. COMPARISON: Plain film examination of 12/26/2019. FINDINGS: The scapholunate and lunotriquetral ligaments are felt to be intact, some components of the scapholunate ligament are indistinct, if patient has pain specifically related to this region I would suggest MR arthrography. The triangular fibrocartilage appears intact with some mild thinning to the central portion. No defin itive tear. The carpal tunnel region is unremarkable extensor tendons are normal. A small ganglion cyst is noted on the volar side of the radius this is immediately deep to the flexor pollicis longus longus tendon in this region. No abnormal marrow edema changes seen. The base of the metacarpal regions appear unremarkable. No sig nificant arthritic change. No synovitis. IMPRESSION: Approximately 8 mm ganglion cyst on the volar side of the radius just deep to the flexor pollicis longus tendon no findings to explain patient's ulnar-sided pain.
== END 2020-01-12 15:42 | disposition home or self-care (01) ==
LOC: BICRAD 15:41 → BICMRI 15:42
PROVIDERS: ATTEND Pain Medicine Pain Medicine
DX: M25.531 Pain in right wrist (principal); M54.17 Radiculopathy, lumbosacral region; M67.431 Ganglion, right wrist

== ENCOUNTER 2020-03-23 18:25 | Emergency (ER) | payer MEDICARE ==
[2020-03-23] MEDS ORDERED: Morphine 4 MG/ML VIAL ONE (20:18)
[2020-03-23] MEDS ORDERED: Ketorolac Tromethamine 30 MG/ML VIAL ONE (20:19)
--- NOTE | 2020-03-23 21:11 | RAD ---
CERVICAL SPINE RADIOGRAPHS: 03/23/20 PROVIDED CLINICAL HISTORY: Cervical spine pain. FINDINGS: Correlation is made with the CT examination dated 03/12/20. Fracture of the C5 screw right of midline and C7 screws bilaterally redemonstrated. Anterior and posterior fusion changes as previously describ ed appears stable. There is no significant prevertebral soft tissue swelling apparent. Extensive bone augmentation material again noted. There is straightening of the normal cervical lordosis. There is a stable small osseous fragment at the inferior margin of C7 anteriorly. The visualized lung apices a ppear clear. IMPRESSION: Postoperative changes involving the cervical spine as described above, unchanged with respect to 03/12. POS: IVAN
== END 2020-03-23 20:56 | disposition home or self-care (01) ==
LOC: ERS 18:25
DX: G89.18 Other acute postprocedural pain (principal); E11.9 Type 2 diabetes mellitus without complications; E78.5 Hyperlipidemia, unspecified; E78.00 Pure hypercholesterolemia, unspecified; I10 Essential (primary) hypertension; F41.9 Anxiety disorder, unspecified; F43.10 Post-traumatic stress disorder, unspecified; Z79.84 Long term (current) use of oral hypoglycemic drugs; Z79.899 Other long term (current) drug therapy
CPT/HCPCS: 72040; 96372; J1885; J2270

== ENCOUNTER 2020-04-04 16:14 | Outpatient (CLI) | payer MEDICARE ==
--- NOTE | 2020-04-04 16:50 | RAD ---
Lumbar spine 2 views weightbearing HISTORY: Low back pain. FINDINGS: There are 5 lumbar type vertebrae. Bilateral pedicle screws and vertical rods at the lumbos acral junction, and metallic markers associated with interbody fusion material within the confines of the disc space. Evidence of surgical absence of the posterior elements minimal spondylolisthesis. Other pedicles are intact. Vertebral body heights are maintained. No acute fracture or dislocation. IMPRESSION : Postoperative changes of the lumbosacral junction without evidence of complication. No evidence of co mpression fracture.
--- NOTE | 2020-04-04 16:56 | RAD ---
EXAM: XR Cerv Sp Ap Lat STANDARD PROVIDED CLINICAL HISTORY: Other spondylosis with radiculopathy cervical spine. Patient states tingling in left fingers and neck pain. History of surgery. COMPARISON: 03/23/2020 FINDINGS: Again noted are extensive postoperative changes of the cervical spine related to both posterior as we ll as anterior cervical fusion. Anterior plate and screws transfix the C3-C5 level with anterior plate and screws transfixing the C6-7 level. There are bipedicular screws and posterior rods transfix ing the C3-T1 levels. Pedicular screws are not present in the C6 pedicles. Fractured screw to the right of midline at C5 and bilaterally at C7 are again seen. No additional hardware complication is a ppreciated. Again noted is extensive bone augmentation material posteriorly. Straightening of normal cervical lordotic curvature is present. Intradiscal prostheses at the C3-4, C 4-5, and C6-7 levels are again seen. Laminectomy defects are seen at levels of posterior fusion. Tiny osseous fragment at the anterior inferior margin of C7 is again seen. Prevertebral soft tissues are unchanged from prior study. Skin clips posteriorly have been removed. IMPRESSION: Stable postoperative changes of the cervical spine with fractures involving the anterior screws in C5 and C7 as reported on prior exam and unchanged.
== END 2020-04-04 16:15 | disposition home or self-care (01) ==
LOC: BICRAD 16:14
PROVIDERS: ATTEND Neurological Surgery
DX: M47.817 Spondylosis without myelopathy or radiculopathy, lumbosacral region (principal); M47.22 Other spondylosis with radiculopathy, cervical region; M96.0 Pseudarthrosis after fusion or arthrodesis; Z98.1 Arthrodesis status
CPT/HCPCS: 72040; 72100

== ENCOUNTER 2020-10-06 12:11 | Outpatient (CLI) | payer MEDICARE ==
[2020-10-06 21:52] LABS: SARS-CoV-2 PCR by NAA Not Detected (NotDetected)
== END 2020-10-06 12:12 | disposition home or self-care (01) ==
LOC: LABBT 12:11
PROVIDERS: ATTEND Internal Medicine Gastroenterology
DX: Z01.812 Encounter for preprocedural laboratory examination (principal); Z20.822 Contact with and (suspected) exposure to COVID-19
CPT/HCPCS: U0003; U0005; 87635

== ENCOUNTER 2020-10-11 07:18 | Day surgery (SDC) | payer MEDICARE ==
[2020-10-10 12:50] VITALS: BMI 26.9
[2020-10-11] MEDS ORDERED: PROPOFOL 200 MG/20 ML VIAL ONE (10:07)
== END 2020-10-11 11:22 | disposition home or self-care (01) ==
LOC: SDC 07:18
PROVIDERS: ATTEND Internal Medicine Gastroenterology
PROC: 0DJD8ZZ Inspection of Lower Intestinal Tract, Via Natural or Artificial Opening Endoscopic (ICD-10-PCS; principal; 2020-10-11)
DX: Z12.11 Encounter for screening for malignant neoplasm of colon (principal); Q43.8 Other specified congenital malformations of intestine; E78.5 Hyperlipidemia, unspecified; I10 Essential (primary) hypertension; E11.9 Type 2 diabetes mellitus without complications; G47.30 Sleep apnea, unspecified; Z79.84 Long term (current) use of oral hypoglycemic drugs; Z79.899 Other long term (current) drug therapy; Z88.0 Allergy status to penicillin; Z88.1 Allergy status to other antibiotic agents; Z88.8 Allergy status to other drugs, medicaments and biological substances
CPT/HCPCS: J2704

== ENCOUNTER 2021-03-29 17:06 | Emergency (ER) | payer MEDICARE ==
[~2021-03-29 17:06] MED LIST: Iopamidol-370 76% 500 ML 1 ML ONE
[2021-03-29 18:46] LABS: Hemoglobin 12.1 g/dL (12.0-16.0); Mean Corpuscular HGB CONC 31.7 g/dL (32.0-36.0); Mean Corpuscular Hemoglobin 26.4 pg (27.0-31.0); Mean Corpuscular Volume 83.4 fL (78.0-98.0); Mean Platelet Volume 8.7 fL (7.4-10.4); Platelet Count 204 thou/uL (130-400); RBC Distribution Width 13.1 % (11.5-14.5); Red Blood Cell (RBC) Count 4.58 mill/uL (4.20-5.40); White Blood Cell (WBC) Count 3.7 thou/uL (4.8-10.8)
[2021-03-29 19:16] LABS: Band 4 % (5-11); Eosinophils 2 % (0-10); Hypochromia SLIGHT = 6-15 cells (100X) (0-5/hpf); Lymphocytes 31 % (21-51); MDiff Complete? YES; Monocytes 11 % (0-10); Neutrophil 44 % (42-75); Platelet Morphology Comment Appears Adequate; Polychromasia SLIGHT = 2-3 cells (100X) (0-2/hpf); Reactive Lymphocytes 6 % (0-10)
[2021-03-29] MEDS ORDERED: Morphine 4 MG/ML VIAL ONE (19:52)
[2021-03-29 20:12] LABS: ALT (SGPT) 17 U/L (8-55); AST (SGOT) 17 U/L (5-34); Albumin 4.1 g/dL (3.5-5.0); Alkaline Phosphatase 150 U/L (40-110); Anion Gap 13 mmol/L (10-20); BUN (Urea Nitrogen) 22 mg/dL (9.8-20.1); Bilirubin, Total 0.3 mg/dL (0.2-1.2); Calc. Creatinine Clearance 0 mL/min (70-130); Calcium 11.1 mg/dL (7.8-10.44); Carbon Dioxide 25 mmol/L (22-29); Chloride 107 mmol/L (98-107); Globulin 4.2 g/dL (2.4-3.5); Glucose 93 mg/dL (70-105); Protein, Total 8.3 g/dL (6.0-8.3); Sodium 141 mmol/L (136-145)
[2021-03-29 22:27] LABS: SARS-CoV-2 NAA Rapid Test Not Detected (NotDetected)
== END 2021-03-29 21:42 | disposition home or self-care (01) ==
LOC: ERS 17:06
DX: R07.81 Pleurodynia (principal); R59.9 Enlarged lymph nodes, unspecified; Z20.822 Contact with and (suspected) exposure to COVID-19; E78.5 Hyperlipidemia, unspecified; E78.00 Pure hypercholesterolemia, unspecified; I10 Essential (primary) hypertension; M19.90 Unspecified osteoarthritis, unspecified site; G47.00 Insomnia, unspecified; G43.909 Migraine, unspecified, not intractable, without status migrainosus; E11.40 Type 2 diabetes mellitus with diabetic neuropathy, unspecified
CPT/HCPCS: 0240U; 71045; 71275; 80053; 84484; 85025; 85379; 93005; 96374; 99285; 36415; J2270; Q9967

== ENCOUNTER 2021-05-18 15:52 | Emergency (ER) | payer MEDICARE ==
[2021-05-18] MEDS ORDERED: Morphine 4 MG/ML VIAL ONE (17:43)
[2021-05-18] MEDS ORDERED: Ondansetron ODT 4 MG TAB ONE (17:43)
[2021-05-18] MEDS ORDERED: Ketorolac Tromethamine 30 MG/ML VIAL ONE (17:43)
== END 2021-05-18 18:50 | disposition home or self-care (01) ==
LOC: ERS 15:52
DX: M54.42 Lumbago with sciatica, left side (principal); E11.9 Type 2 diabetes mellitus without complications; E78.5 Hyperlipidemia, unspecified; E78.00 Pure hypercholesterolemia, unspecified; I10 Essential (primary) hypertension; G43.909 Migraine, unspecified, not intractable, without status migrainosus; M19.90 Unspecified osteoarthritis, unspecified site; G47.00 Insomnia, unspecified; Z79.899 Other long term (current) drug therapy; Z79.84 Long term (current) use of oral hypoglycemic drugs
CPT/HCPCS: 72100; 96374; 96375; J1885; J2270; Q0162

== ENCOUNTER 2021-07-03 16:59 | Outpatient (CLI) | payer MEDICARE ==
[~2021-07-03 16:59] MED LIST changes: +Iopamidol 370 76% 100 ML VIAL ONE; -Iopamidol-370 76% 500 ML 1 ML ONE
== END 2021-07-03 17:00 | disposition home or self-care (01) ==
LOC: CT 16:59
DX: R59.0 Localized enlarged lymph nodes (principal)
CPT/HCPCS: 71260; Q9967

== ENCOUNTER 2021-07-12 14:27 | Outpatient (CLI) | payer MEDICARE ==
[~2021-07-12 14:27] MED LIST changes: -Iopamidol 370 76% 100 ML VIAL ONE; +Magnevist 469MG/ML 20 ML VIAL ONE
== END 2021-07-12 14:28 | disposition home or self-care (01) ==
LOC: BICMRI 14:27
PROVIDERS: ATTEND Neurological Surgery
DX: M47.22 Other spondylosis with radiculopathy, cervical region (principal); M47.817 Spondylosis without myelopathy or radiculopathy, lumbosacral region; M96.0 Pseudarthrosis after fusion or arthrodesis; E11.9 Type 2 diabetes mellitus without complications; S12.400A Unspecified displaced fracture of fifth cervical vertebra, initial encounter for closed fracture; M47.814 Spondylosis without myelopathy or radiculopathy, thoracic region; M51.26 Other intervertebral disc displacement, lumbar region; M48.061 Spinal stenosis, lumbar region without neurogenic claudication; R59.0 Localized enlarged lymph nodes; Z98.890 Other specified postprocedural states
CPT/HCPCS: 72040; 72072; 72158; 82565; A9579

== ENCOUNTER 2022-01-02 19:34 | Emergency (ER) | payer OTHER ==
[2022-01-02] MEDS ORDERED: Ondansetron ODT 4 MG TAB ONE (22:54)
[2022-01-02 23:45] LABS: Hemoglobin 13.7 g/dL (12.0-16.0); Mean Corpuscular HGB CONC 31.9 g/dL (32.0-36.0); Mean Corpuscular Hemoglobin 28.1 pg (27.0-31.0); Mean Corpuscular Volume 88.2 fL (78.0-98.0); Mean Platelet Volume 8.6 fL (7.4-10.4); Platelet Count 213 thou/uL (130-400); RBC Distribution Width 12.1 % (11.5-14.5); Red Blood Cell (RBC) Count 4.85 mill/uL (4.20-5.40); White Blood Cell (WBC) Count 4.6 thou/uL (4.8-10.8)
[2022-01-03 00:12] LABS: ALT (SGPT) 36 U/L (8-55); AST (SGOT) 28 U/L (5-34); Albumin 4.3 g/dL (3.5-5.0); Alkaline Phosphatase 145 U/L (40-110); Anion Gap 14 mmol/L (10-20); BUN (Urea Nitrogen) 16 mg/dL (9.8-20.1); Bilirubin, Total 0.5 mg/dL (0.2-1.2); Calc. Creatinine Clearance 0 mL/min (70-130); Calcium 10.3 mg/dL (7.8-10.44); Carbon Dioxide 26 mmol/L (22-29); Chloride 104 mmol/L (98-107); Estimated GFR 45; Globulin 4.1 g/dL (2.4-3.5); Glucose 99 mg/dL (70-105); Protein, Total 8.4 g/dL (6.0-8.3); Sodium 140 mmol/L (136-145)
[2022-01-03 00:27] LABS: Band 1 % (5-11); Eosinophils 5 % (0-10); Lymphocytes 21 % (21-51); MDiff Complete? YES; Monocytes 16 % (0-10); Neutrophil 57 % (42-75)
== END 2022-01-03 02:18 | disposition home or self-care (01) ==
LOC: ERS 19:34
DX: R11.2 Nausea with vomiting, unspecified (principal); R19.7 Diarrhea, unspecified; E78.5 Hyperlipidemia, unspecified; E78.00 Pure hypercholesterolemia, unspecified; I10 Essential (primary) hypertension; G47.00 Insomnia, unspecified; E11.40 Type 2 diabetes mellitus with diabetic neuropathy, unspecified; Z79.4 Long term (current) use of insulin
CPT/HCPCS: 36415; 80053; 85025; 99284; Q0162

== ENCOUNTER 2022-04-30 22:03 | Emergency (ER) | payer OTHER ==
[2022-04-30] MEDS ORDERED: Ondansetron ODT 4 MG TAB ONE (22:26)
[2022-04-30] MEDS ORDERED: Ketorolac Tromethamine 30 MG/ML VIAL ONE (22:26)
[2022-04-30] MEDS ORDERED: Morphine 4 MG/ML VIAL ONE (22:26)
== END 2022-05-01 00:24 | disposition home or self-care (01) ==
LOC: ERS 22:03
DX: M54.50 Low back pain, unspecified (principal); E11.9 Type 2 diabetes mellitus without complications; E78.5 Hyperlipidemia, unspecified; E78.00 Pure hypercholesterolemia, unspecified; I10 Essential (primary) hypertension; V43.02XA Car driver injured in collision with other type car in nontraffic accident, initial encounter
CPT/HCPCS: 71045; 72125; 72131; 96372; J1885; J2270; Q0162

== ENCOUNTER 2022-06-06 09:21 | Outpatient (CLI) | payer OTHER | END 2022-06-06 09:22 | disposition home or self-care (01) | LOC: MRI 09:21 | PROVIDERS: ATTEND Pain Medicine Pain Medicine | DX: M54.14 Radiculopathy, thoracic region (principal); M47.814 Spondylosis without myelopathy or radiculopathy, thoracic region; M62.830 Muscle spasm of back; G89.4 Chronic pain syndrome; Z79.891 Long term (current) use of opiate analgesic; Z96.82 Presence of neurostimulator | CPT/HCPCS: 72146 ==

== ENCOUNTER 2022-07-24 12:25 | Outpatient (CLI) | payer OTHER | END 2022-07-24 12:26 | disposition home or self-care (01) | LOC: ULT 12:25 | PROVIDERS: ATTEND Family Medicine | DX: N18.30 Chronic kidney disease, stage 3 unspecified (principal); K76.0 Fatty (change of) liver, not elsewhere classified | CPT/HCPCS: 76770 ==

== ENCOUNTER 2022-08-21 11:13 | Outpatient (CLI) | payer OTHER | END 2022-08-21 11:14 | disposition home or self-care (01) | LOC: BICRAD 11:13 | PROVIDERS: ATTEND Pain Medicine Pain Medicine | DX: M25.551 Pain in right hip (principal) ==

== ENCOUNTER 2023-04-30 08:31 | Outpatient (CLI) | payer OTHER | END 2023-04-30 08:32 | disposition home or self-care (01) | LOC: BICCT 08:31 | PROVIDERS: ATTEND Internal Medicine Critical Care Medicine | DX: I88.8 Other nonspecific lymphadenitis (principal) | CPT/HCPCS: 71250 ==